=== PATIENT | female | born 1995 | race Caucasian/White ===

== ENCOUNTER 2017-06-18 08:48 | Emergency (ER) | payer BC ==
[2017-06-18 09:15] VITALS: BP 138/75
--- NOTE | 2017-06-18 10:00 | UC ---
Throat Pain/Nasal Allen HPI - HPI Summary HPI Summary: SORE THROAT X 3 DAYS + FEVER, CHILLS, COUGH , BODY ACHES / FATIGUE - History of Current Complaint Chief Complaint: UCRespiratory Stated Complaint: FLU SYMPTOMS Time Seen by Provider: 06/18/17 09:32 Hx Obtained From: Patient Hx Last Menstrual Period: 06/04/17 ?: No Onset/Duration: Gradual Onset, Lasting Days - 3, Still Present Severity: Moderate Pain Intensity: 8 Cough: Nonproductive Associated Signs & Symptoms: Positive: Nasal Discharge, Fever. Negative: Sinus Discomfort, Rash - Allergies/Home Medications Allergies/Adverse Reactions: Allergies Allergy/AdvReac Type Severity Reaction Status Date / Time No Known Allergies Allergy Verified 06/18/17 09:08 PMH/Surg Hx/FS Hx/Imm Hx Previously Healthy: Yes - Surgical History Surgical History: Yes Surgery Procedure, Year, and Place: T&A Summer 2015 - Family History Known Family History: Positive: Respiratory Disease - Social History Alcohol Use: Occasionally Alcohol Amount: 1 BEER ON OCCASION Substance Use Type: None Smoking Status (MU): Never Smoked Tobacco - Immunization History Most Recent Influenza Vaccination: Not the Season Review of Systems Constitutional: Fever, Chills, Fatigue Skin: Negative Eyes: Negative ENT: Sore Throat, Nasal Discharge Respiratory: Cough Cardiovascular: Negative Is Patient Immunocompromised?: No All Other Systems Reviewed And Are Negative: Yes Physical Exam Triage Information Reviewed: Yes Appearance: Well-Appearing, No Pain Distress, Well-Nourished Vital Signs: Initial Vital Signs Temp 98.8 F 06/18/17 09:10 Pulse 90 06/18/17 09:10 Resp 18 06/18/17 09:10 BP 138/75 06/18/17 09:10 Pulse Ox 99 06/18/17 09:10 Vital Signs Reviewed: Yes Eyes: Positive: Conjunctiva Clear ENT: Positive: Normal ENT inspection, Hearing grossly normal, Pharynx normal, Nasal drainage, TMs normal Neck exam: Normal Neck: Positive: Supple, Nontender, No Lymphadenopathy Respiratory: Positive: Chest non-tender, Lungs clear, Normal breath sounds Cardiovascular: Positive: RRR, No Murmur, Pulses Normal Abdominal Exam: Normal Abdomen Description: Positive: Nontender, Soft. Negative: CVA Tenderness (R), CVA Tenderness (L), Distended, Guarding Bowel Sounds: Positive: Present Skin Exam: Normal Throat Pain/Nasal Course/Dx - Differential Dx/Diagnosis Provider Diagnoses: VIRAL ILLNESS Discharge - Discharge Plan Condition: Stable Disposition: HOME Patient Education Materials: Pharyngitis (ED) Referrals: Non Staff,Doctor [Primary Care Provider] - If Needed
== END 2017-06-18 10:32 | disposition home or self-care (01) ==
LOC: UCCORT 08:48
DX: B34.9 Viral infection, unspecified (principal)
CPT/HCPCS: 87502; 99211; G0463

== ENCOUNTER 2018-01-31 14:23 | Emergency (ER) | payer BC ==
[2018-01-31 15:01] VITALS: BP 127/78
--- NOTE | 2018-01-31 16:19 | UC ---
Throat Pain/Nasal Allen HPI - HPI Summary HPI Summary: awoke with chills, sore throat ear aches and body aches - History of Current Complaint Chief Complaint: UCGeneralIllness Stated Complaint: SORE THROAT BILATERAL EARS CONGESTION Time Seen by Provider: 01/31/18 15:55 Hx Obtained From: Patient Hx Last Menstrual Period: 01/24/18 ?: No Onset/Duration: Sudden Onset Pain Intensity: 8 Pain Scale Used: 0-10 Numeric Cough: None Associated Signs & Symptoms: Positive: Negative - Allergies/Home Medications Allergies/Adverse Reactions: Allergies Allergy/AdvReac Type Severity Reaction Status Date / Time No Known Allergies Allergy Verified 01/31/18 14:58 PMH/Surg Hx/FS Hx/Imm Hx Previously Healthy: No Psychological History: Depression - Surgical History Surgical History: Yes Surgery Procedure, Year, and Place: T&A Summer 2015 - Family History Known Family History: Positive: Respiratory Disease - Social History Occupation: Employed Part-time, Student Lives: Dormitory/Roommates Alcohol Use: Weekly Alcohol Amount: 1 BEER ON OCCASION Substance Use Type: Marijuana Substance Use Comment - Amount & Last Used: weekly Smoking Status (MU): Never Smoked Tobacco - Immunization History Most Recent Influenza Vaccination: Not the Season Review of Systems Constitutional: Chills, Fatigue Skin: Negative Eyes: Negative ENT: Sore Throat, Ear Ache Respiratory: Negative Cardiovascular: Negative Gastrointestinal: Negative Genitourinary: Negative Motor: Negative Neurovascular: Negative Musculoskeletal: Arthralgia, Myalgia Neurological: Negative Psychological: Negative Is Patient Immunocompromised?: No All Other Systems Reviewed And Are Negative: Yes Physical Exam Triage Information Reviewed: Yes Appearance: Well-Appearing, No Pain Distress, Well-Nourished Vital Signs: Initial Vital Signs Temp 98.1 F 01/31/18 14:57 Pulse 85 01/31/18 14:57 Resp 16 01/31/18 14:57 BP 127/78 01/31/18 14:57 Pulse Ox 100 01/31/18 14:57 Vital Signs Reviewed: Yes Eye Exam: Normal Eyes: Positive: Conjunctiva Clear ENT Exam: Normal ENT: Positive: Normal ENT inspection, Hearing grossly normal, Pharyngeal erythema, TMs normal, Uvula midline. Negative: Nasal congestion, Nasal drainage , Tonsillar swelling, Tonsillar exudate, Trismus, Muffled voice, Hoarse voice, Dental tenderness, Sinus tenderness Dental Exam: Normal Neck exam: Normal Neck: Positive: Supple, Nontender, Enlarged Nodes @ - anterior cervical Respiratory Exam: Normal Respiratory: Positive: Chest non-tender, Lungs clear, Normal breath sounds, No respiratory distress, No accessory muscle use Cardiovascular Exam: Normal Cardiovascular: Positive: RRR, No Murmur, Pulses Normal, Brisk Capillary Refill Musculoskeletal Exam: Normal Musculoskeletal: Positive: Strength Intact, ROM Intact, No Edema Neurological Exam: Normal Neurological: Positive: Alert, Muscle Tone Normal Psychological Exam: Normal Skin Exam: Normal Diagnostics - Laboratory Diagnostic Studies Completed/Ordered: RST -(+) Throat Pain/Nasal Course/Dx - Course Assessment/Plan: ibuprofen amoxicillin rest increase fluids follow with [facility] - Differential Dx/Diagnosis Provider Diagnoses: Strep pharyngitis Discharge - Sign-Out/Discharge Documenting (check all that apply): Patient Departure All imaging exams completed and their final reports reviewed: No Studies - Discharge Plan Condition: Stable Disposition: HOME Prescriptions: Amoxicillin PO (*) [Amoxicillin 875 MG (*)] 875 mg PO BID #20 tab Patient Education Materials: Ibuprofen (By mouth), Strep Throat (ED) Referrals: [facility] [Outside] - If Needed - Billing Disposition and Condition Condition: STABLE Disposition: Home
== END 2018-01-31 16:28 | disposition home or self-care (01) ==
LOC: UCCORT 14:23
DX: J02.0 Streptococcal pharyngitis (principal)
CPT/HCPCS: 87651; 99212; G0463

== ENCOUNTER 2018-03-18 12:25 | Emergency (ER) | payer BC ==
[2018-03-18 12:40] VITALS: BP 140/84
--- NOTE | 2018-03-18 12:48 | UC ---
Complaint Female HPI - HPI Summary HPI Summary: The patient is a 22-year-old female with a less than 24-hour history of dysuria urgency or frequency. She denies any fever or chills. She denies any abdominal pain. She denies any nausea vomiting or diarrhea. She denies any vaginal discharge or itching. - History Of Current Complaint Chief Complaint: UCGU Stated Complaint: URINARY Time Seen by Provider: 03/18/18 12:47 Hx Obtained From: Patient Hx Last Menstrual Period: 03/10/18 Onset/Duration: Sudden Onset, Lasting Hours Timing: Constant Severity Initially: Mild Severity Currently: Mild Pain Intensity: 4 Pain Scale Used: 0-10 Numeric Aggravating Factor(s): Urination Alleviating Factor(s): Nothing Associated Signs And Symptoms: Negative: Fever, Back Pain, Vaginal Bleeding/ Discharge, Vaginal Discharge, Nausea, Vomiting(# Of Episodes =), Genital Swelling, Genital Blisters, Retained Foregin Body (Specify) - Allergies/Home Medications Allergies/Adverse Reactions: Allergies Allergy/AdvReac Type Severity Reaction Status Date / Time No Known Allergies Allergy Verified 03/18/18 12:37 Home Medications: Home Medications Ibuprofen/Pseudoephedrine HCl [Advil Cold & Sinus] 2 tab PO Q6H PRN 03/18/18 [ History Confirmed 03/18/18] Vitamin E CAP* 400 unit PO DAILY 03/18/18 [History Confirmed 03/18/18] PMH/Surg Hx/FS Hx/Imm Hx Previously Healthy: Yes - Surgical History Surgical History: Yes Surgery Procedure, Year, and Place: &A, 2016 - Family History Known Family History: Positive: Hypertension, Respiratory Disease - Social History Alcohol Use: Occasionally Alcohol Amount: 1 BEER ON OCCASION Substance Use Type: Marijuana Substance Use Comment - Amount & Last Used: weekly Smoking Status (MU): Never Smoked Tobacco - Immunization History Most Recent Influenza Vaccination: Not the Season Review of Systems All Other Systems Reviewed And Are Negative: Yes Constitutional: Positive: Negative Skin: Positive: Negative Eyes: Positive: Negative ENT: Positive: Negative Respiratory: Positive: Negative Cardiovascular: Positive: Negative Gastrointestinal: Positive: Negative Genitourinary: Positive: Dysuria, Frequency, Urgency Motor: Positive: Negative Neurovascular: Positive: Negative Musculoskeletal: Positive: Negative Neurological: Positive: Negative Psychological: Positive: Negative Physical Exam Triage Information Reviewed: Yes Appearance: Well-Appearing, No Pain Distress, Well-Nourished Vital Signs: Initial Vital Signs Temp 97.4 F 03/18/18 12:34 Pulse 69 03/18/18 12:34 Resp 18 03/18/18 12:34 BP 140/84 03/18/18 12:34 Pulse Ox 100 03/18/18 12:34 Vital Signs Reviewed: Yes Eyes: Positive: Conjunctiva Clear ENT: Positive: Hearing grossly normal. Negative: Nasal congestion, Nasal drainage, Trismus, Muffled voice, Hoarse voice, Sinus tenderness, Uvula midline Neck: Positive: Supple, Nontender Respiratory: Positive: Lungs clear, Normal breath sounds, No respiratory distress, No accessory muscle use Cardiovascular: Positive: RRR, No Murmur Abdominal Exam: Normal Bowel Sounds: Positive: Present Musculoskeletal: Positive: ROM Intact, No Edema Neurological: Positive: Alert Psychological Exam: Normal Skin Exam: Normal Complaint Female Dx - Course Course Of Treatment: UA ++rbcs, +++ leuks - Differential Dx/Diagnosis Provider Diagnosis: UTI (urinary tract infection) Discharge - Sign-Out/Discharge Documenting (check all that apply): Patient Departure All imaging exams completed and their final reports reviewed: No Studies - Discharge Plan Condition: Stable Disposition: HOME Prescriptions: Cephalexin CAP* [Keflex CAP*] 500 mg PO BID #10 cap Phenazopyridine TAB* [Pyridium 100 mg TAB*] 100 mg PO TID #6 tab Referrals: Santhosh Soriano MD [Primary Care Provider] - If Needed Additional Instructions: recheck in 2 days if not better recheck sooner for increased pain/fever or vomiting - Billing Disposition and Condition Condition: STABLE Disposition: Home
[2018-03-18] MEDS ORDERED: Cephalexin CAP* 500 MG PO ONE (12:54)
[2018-03-18] MEDS ORDERED: Phenazopyridine TAB* 100 MG PO ONE (12:55)
== END 2018-03-18 13:07 | disposition home or self-care (01) ==
LOC: UCCORT 12:25
DX: N39.0 Urinary tract infection, site not specified (principal); B96.20 Unspecified Escherichia coli [E. coli] as the cause of diseases classified elsewhere
CPT/HCPCS: 81003; 87077; 87086; 87186; 99212; A9270-GY; G0463

== ENCOUNTER 2018-05-12 15:31 | Emergency (ER) | payer BC ==
[2018-05-12 16:07] VITALS: BP 133/81
--- NOTE | 2018-05-12 16:58 | UC ---
Complaint Female HPI - HPI Summary HPI Summary: 22 yo WF present with urianry dysuria, frequency and urgency x 2 days associated with left LBP. Recent infectio with streg, got Augmentin and vaginitis which turned into a UTI, this has happened again this past March. - History Of Current Complaint Chief Complaint: UCGU Stated Complaint: URINARY Time Seen by Provider: 05/12/18 16:37 Hx Obtained From: Patient Hx Last Menstrual Period: 05/02/18 Onset/Duration: Lasting Days Timing: Lasting Days Severity Initially: Moderate Severity Currently: Moderate Pain Intensity: 0 - Allergies/Home Medications Allergies/Adverse Reactions: Allergies Allergy/AdvReac Type Severity Reaction Status Date / Time No Known Allergies Allergy Verified 05/12/18 15:52 PMH/Surg Hx/FS Hx/Imm Hx - Surgical History Surgical History: Yes Surgery Procedure, Year, and Place: &A, 2016 - Family History Known Family History: Positive: Hypertension, Respiratory Disease - Social History Alcohol Use: Weekly Alcohol Amount: 1 BEER ON OCCASION Substance Use Type: Marijuana Substance Use Comment - Amount & Last Used: weekly Smoking Status (MU): Never Smoked Tobacco Type: eCigarettes - Immunization History Most Recent Influenza Vaccination: Not the Season Review of Systems All Other Systems Reviewed And Are Negative: Yes Constitutional: Positive: Negative Eyes: Positive: Negative ENT: Positive: Negative Respiratory: Positive: Negative Cardiovascular: Positive: Negative Gastrointestinal: Positive: Negative Genitourinary: Positive: Dysuria, Frequency, Urgency Motor: Positive: Negative Neurovascular: Positive: Negative Neurological: Positive: Negative Psychological: Positive: Negative Is Patient Immunocompromised?: No Physical Exam - Summary Physical Exam Summary: Vital Signs Reviewed: Yes Appearance: Positive: Well-Appearing Skin: Positive: Warm Head/Face: Positive: Normal Head/Face Inspection Eyes: Positive: Normal, EOMI, SUSAN ENT: Positive: Normal ENT inspection Neck: Positive: Supple Respiratory/Lung Sounds: Positive: Clear to Auscultation Cardiovascular: Positive: Normal, RRR, S1, S2 Abdomen Positive: Nontender, Soft, left CVA tenderness, mild Musculoskeletal: Positive: Normal Neurological: Positive: CN Intact II-XII Psychiatric: Positive: Normal Triage Information Reviewed: Yes Vital Signs: Initial Vital Signs Temp 36.6 C 05/12/18 15:54 Pulse 85 05/12/18 15:54 Resp 16 05/12/18 15:54 BP 133/81 05/12/18 15:54 Pulse Ox 97 05/12/18 15:54 Complaint Female Dx - Course Course Of Treatment: UA positive for blood, LE, sent out for Ucx - Differential Dx/Diagnosis Provider Diagnosis: Cystitis Discharge - Sign-Out/Discharge Documenting (check all that apply): Patient Departure All imaging exams completed and their final reports reviewed: No Studies - Discharge Plan Condition: Stable Disposition: HOME Prescriptions: Cephalexin CAP* [Keflex CAP*] 500 mg PO BID 10 Days #20 cap Patient Education Materials: Urinary Tract Infection in Women (ED) Referrals: Christie MATOS,Aly Montesinos [Primary Care Provider] - - Billing Disposition and Condition Condition: STABLE Disposition: Home
== END 2018-05-12 16:56 | disposition home or self-care (01) ==
LOC: UCCORT 15:31
DX: N30.90 Cystitis, unspecified without hematuria (principal)
CPT/HCPCS: 81003; 87077; 87086; 87186; 99212; G0463